=== PATIENT | male | born 1990 | race Caucasian/White ===

== ENCOUNTER 2020-12-02 18:17 | Emergency (ER) | payer OTHER ==
[~2020-12-02] VITALS: Ht 185.4 cm; Wt 90.7 kg
--- NOTE | 2020-12-02 18:22 | NUR ---
BIBA TAKEN TO GREG
[2020-12-02 18:23] VITALS: BP 129/84
--- NOTE | 2020-12-02 18:40 | NUR ---
Code brain called by Dr Sanchez. CT made aware
[2020-12-02] MEDS: MORPHINE SULFATE 2 MG/ML SYR IVP ONE (19:21)
[2020-12-02] MEDS: ONDANSETRON 4 MG/2 ML VIAL IVP ONE ×2 (19:22→20:40)
[2020-12-02 19:25] LABS: HEMATOCRIT 34.1 % (36-52); HEMOGLOBIN 11.7 g/dL (12.0-18.0); LYMPHOCYTES # (AUTO) 0.2 K/uL (2.0-11.5); LYMPHOCYTES % (AUTO) 74.1 % (20.5-51.1); MEAN CORPUSCULAR HEMOGLOBIN 33 pg (27-31); MEAN CORPUSCULAR HGB CONC 34 g/dL (33-37); MEAN CORPUSCULAR VOLUME 95.9 fL (80-94); MONOCYTES % (AUTO) 18.5 % (1.7-9.3); NEUTROPHILS % (AUTO) 7.4 % (42.2-75.2); PLATELET COUNT (AUTO) 57 K/uL (140-450); RED BLOOD CELL COUNT(AUTO) 3.55 MIL/uL (4.20-6.10); RED CELL DISTRIBUTION WIDTH 14.2 % (11.6-13.7)
[2020-12-02 19:39] LABS: ACETAMINOPHEN < 0.5 ug/ml (10-30); ALBUMIN 3.7 g/dL (3.4-5.0); ANION GAP 9.3 (8-16); ASPARTATE AMINOTRANSFERASE 10 U/L (15-37); CARBON DIOXIDE 30.7 mmol/L (21-32); CHLORIDE 90 mmol/L (98-107); CREATININE 1.1 mg/dL (0.6-1.3); GFR ARICAN-AMERICAN 100 mL/min (>90); GLUCOSE 145 mg/dL (74-106); SALICYLATE < 2.8 mg/dL (2.8-20.0); SODIUM SERUM 126 mmol/L (136-145); TOTAL BILIRUBIN 0.4 mg/dL (0.0-1.0); UREA NITROGEN, BLOOD 28 mg/dL (7-18)
[2020-12-02 19:44] LABS: PROTHROMBIN TIME 9.7 secs (10.8-13.4)
[2020-12-02 19:57] LABS: WHITE BLOOD COUNT (AUTO) 0.3 K/uL (4.8-10.8)
[2020-12-02] MEDS ORDERED: ONDANSETRON 4 MG/2 ML VIAL ONE (19:59)
[2020-12-02] MEDS ORDERED: MORPHINE SULFATE 10 MG/ML VIAL ONE (20:38)
[2020-12-02] MEDS ORDERED: DEXAMETHASONE 10 MG/ML VIAL ONE (20:39)
[2020-12-02] MEDS ORDERED: PHENYTOIN 1,000 MG in NACL 0.9% 100 ML IV ONE (20:40)
--- NOTE | 2020-12-02 20:45 | NUR ---
[facility] ARRIVED FOR TRANSPORTATION TO [facility].
[2020-12-02] MEDS: MORPHINE SULFATE 10 MG/ML VIAL IVP ONE (20:46)
[2020-12-02] MEDS: DEXAMETHASONE 10 MG/ML VIAL IVP ONE (20:46)
[2020-12-02 20:49] VITALS: BP 121/80
--- NOTE | 2020-12-02 21:00 | NUR ---
Patient to be transferred to [facility]. Is being transferred due to metastasis of the brain. Receiving facility has accepting physician and available space. ER physician has signed transfer form. Patient or responsible democrat has agreed to transfer and signed form. Patient belongings inventoried and will be sent with patient. Copy of nursing notes, lab reports, EKG, Physicians Orders and X-rays to be sent with patient. Report called to Miriam at receiving facility. [facility] ambulance service has been called for transfer. ETA is 30 minutes.
== END 2020-12-02 21:44 | disposition designated cancer center or children's hospital (05) ==
LOC: MED 18:17
DX: C79.31 Secondary malignant neoplasm of brain (principal); I10 Essential (primary) hypertension; Z86.73 Personal history of transient ischemic attack (TIA), and cerebral infarction without residual deficits; Z85.118 Personal history of other malignant neoplasm of bronchus and lung; Z85.47 Personal history of malignant neoplasm of testis; Z88.0 Allergy status to penicillin
CPT/HCPCS: 36415; 70450; 80053; 85025; 85610; 85730; 93005; 96374; 96375; 96376; 99285; G0480; G0482; J1100; J2270; J2405

== ENCOUNTER 2021-02-15 17:30 | Emergency (ER) | payer OTHER ==
[~2021-02-15] VITALS: Ht 185.4 cm; Wt 93.0 kg
--- NOTE | 2021-02-15 17:30 | NUR ---
PT BIBA AND TAKENT O BED 10.
--- NOTE | 2021-02-15 17:31 | NUR ---
PT PLACED ON 3 LEAD ECG AND PULSE OX. PT PLACED ON 2 L O2 VIA NC.
[2021-02-15] MEDS ORDERED: NACL 0.9% 2,000 ML IV ONE (17:35)
--- NOTE | 2021-02-15 17:35 | NUR ---
DR. JOHANSEN AT BEDSIDE EVALUATING PT.
[2021-02-15 17:42] VITALS: BP 85/57
--- NOTE | 2021-02-15 17:44 | NUR ---
XR AT BEDSIDE.
--- NOTE | 2021-02-15 17:50 | NUR ---
Dr. Caldwell at bedside performing ultrasound and IV insertion.
--- NOTE | 2021-02-15 18:10 | NUR ---
Covid swab (Nidhi) collected
[2021-02-15 18:11] LABS: MEAN CORPUSCULAR HEMOGLOBIN 32 pg (27-31); MEAN CORPUSCULAR HGB CONC 34 g/dL (33-37); MEAN CORPUSCULAR VOLUME 94.3 fL (80-94); PLATELET COUNT (AUTO) 45 K/uL (140-450); RED BLOOD CELL COUNT(AUTO) 2.05 MIL/uL (4.20-6.10); RED CELL DISTRIBUTION WIDTH 17.7 % (11.6-13.7); WHITE BLOOD COUNT (AUTO) 22.6 K/uL (4.8-10.8)
[2021-02-15 18:32] LABS: PROTHROMBIN TIME 9.8 secs (10.8-13.4)
[2021-02-15 18:34] LABS: ALBUMIN 2.8 g/dL (3.4-5.0); ANION GAP 16.7 (8-16); ASPARTATE AMINOTRANSFERASE 9 U/L (15-37); CARBON DIOXIDE 24.2 mmol/L (21-32); CHLORIDE 103 mmol/L (98-107); CREATININE 1.1 mg/dL (0.6-1.3); GFR ARICAN-AMERICAN 100 mL/min (>90); GLUCOSE 192 mg/dL (74-106); POTASSIUM 3.9 mmol/L (3.5-5.1); SODIUM SERUM 140 mmol/L (136-145); TOTAL BILIRUBIN 0.2 mg/dL (0.0-1.0); UREA NITROGEN, BLOOD 23 mg/dL (7-18)
[2021-02-15 18:47] LABS: HEMOGLOBIN 6.6 g/dL (12.0-18.0)
[2021-02-15 18:48] LABS: HEMATOCRIT 19.3 % (36-52)
[2021-02-15 18:50] LABS: ACETAMINOPHEN < 0.5 ug/ml (10-30); SALICYLATE < 2.8 mg/dL (2.8-20.0)
--- NOTE | 2021-02-15 18:50 | NUR ---
RECEIVED CRITICAL LAB HGB- 6.6, HCT- 19.[address] JOHANSEN MADE AWARE.
--- NOTE | 2021-02-15 18:51 | NUR ---
CALLED LAB, SPOKE TO STACY AND NOTIFIED OF DALJIT SWAB IN [facility] UT[facility] ROOM.
[2021-02-15 19:04] LABS: BLASTS, MANUAL % 1 % (0-0); LYMPHOCYTES % (MANUAL) 18 % (20-46); METAMYELOCYTES % 1 % (0-0); MONOCYTES % (MANUAL) 3 % (5-12); MYELOCYTES % 1 % (0-0); PROMYELOCYTES % 1 % (0-0)
[2021-02-15] MEDS ORDERED: VANCOMYCIN 1,000 MG in DEXTROSE 5% 250 ML IV ONE (19:10)
[2021-02-15] MEDS ORDERED: CEFEPIME 1,000 MG in DEXTROSE 5% 50 ML IV ONE (19:10)
[2021-02-15] MEDS ORDERED: NACL 0.9% 1,000 ML IV ONE (19:10)
--- NOTE | 2021-02-15 19:14 | NUR ---
Report given to ALEX Yu.
[2021-02-15 19:15] LABS: APPEARANCE,URINE CLEAR (CLEAR); BILIRUBIN,URINE NEGATIVE (NEGATIVE); BLOOD, URINE NEGATIVE (NEGATIVE); COLOR,URINE YELLOW (YELLOW); LEUKOCYTE ESTERASE ,URINE NEGATIVE (NEGATIVE); NITRITE, URINE NEGATIVE (NEGATIVE); UGLUCOSE NEGATIVE (NEGATIVE)
--- NOTE | 2021-02-15 19:15 | NUR ---
Patient appears to be resting comfortably in bed. Vital Signs within normal limits. Respirations even and unlabored. Patient alert and oriented x4. Patient denies pain at this time. Patient given urinal at bedside. Bed is locked and in lowest position.
[2021-02-15] MEDS ORDERED: CEFEPIME 1,000 MG VIAL ONE (19:28)
[2021-02-15] MEDS ORDERED: VANCOMYCIN 1,000 MG VIAL ONE (19:28)
[2021-02-15 19:32] LABS: BARBITURATE, URINE NEGATIVE ng/ml (NEG <=200); BENZODIAZEPINE, URINE NEGATIVE ng/mL (NEG <=200); CANNABINOID, URINE NEGATIVE ng/mL (NEG <=50); COCAINE, URINE NEGATIVE ng/mL (NEG <=300); OPIATE, URINE NEGATIVE ng/mL (NEG <=2000); PHENCYCLIDINE SCREEN,URINE NEGATIVE ng/mL (NEG <=25)
--- NOTE | 2021-02-15 20:00 | NUR ---
PT RETURN FROM CT
[2021-02-15] MEDS ORDERED: levETIRAcetam 1,000 MG in NACL 0.9% 100 ML IV ONE (20:20)
[2021-02-15] MEDS ORDERED: HYDROcodone/APAP 5/325 MG 1 TAB TAB PO ONE (20:20)
[2021-02-15] MEDS ORDERED: levETIRAcetam 100 MG/ML VIAL IV ONE (21:04)
--- NOTE | 2021-02-15 21:50 | NUR ---
DEBBIE SIGNED CONSENT FOR TRANSFER TO [facility]. PATIENT PRESENTS A &O X4. RESPIRATIONS ARE EVEN AND UNLBAORED. SKIN IS WARM AND DRY TO TOUCH. PATIENT REMAINS ON CARDAIC MONITOR. VSS.
--- NOTE | 2021-02-15 21:50 | NUR ---
Consent signed per PATIENT agreeing to administration of blood. Blood has been type and crossmatched. Blood sent from blood bank. Information on unit of blood checked against patient wristband at bedside by two nurses. All information matches. Patient or responsible republican informed of potential complications associated with blood transfusion. Informed of possible transfusion reaction symptoms. Aware of need to notify nurse at once of itching, shortness of breath, flushing, feeling of impending doom, or other symptoms not previously present. Vital signs taken within 5 minutes prior to initiation of transfusion. RN will remain with patient for first 15 minutes of transfusion at which time vital signs will be re-assessed.
--- NOTE | 2021-02-15 22:31 | NUR ---
[facility] TRANSPORT AT BEDSIDE
[2021-02-15 22:35] VITALS: BP 106/59
--- NOTE | 2021-02-15 22:35 | NUR ---
Patient to be transferred to [facility]. Is being transferred due to METASTATIS BLEED FROM BRAIN, SEPSIS, PNEUMONIA. Receiving facility has accepting physician and available space. ER physician has signed transfer form. Patient or responsible green party has agreed to transfer and signed form. Patient belongings inventoried and will be sent with patient. Copy of nursing notes, lab reports, EKG, Physicians Orders and X-rays to be sent with patient. Report called to NOMAN JOHNSON at receiving facility. [facility] ambulance service has been called for transfer.
--- NOTE | 2021-02-15 22:50 | NUR ---
PT TAKEN BY [facility] TRANSPORT TO [facility] ER
--- NOTE | 2021-02-21 09:28 | NUR ---
LATE ENTRY -- NORMAL SALINE INFUSION COMPLETED AT 1843 02/15/21
== END 2021-02-15 22:50 | disposition designated cancer center or children's hospital (05) ==
LOC: MED 17:30
DX: A41.9 Sepsis, unspecified organism (principal); Z20.822 Contact with and (suspected) exposure to COVID-19; J18.9 Pneumonia, unspecified organism; R55 Syncope and collapse; D64.9 Anemia, unspecified; R10.9 Unspecified abdominal pain; R42 Dizziness and giddiness; J45.909 Unspecified asthma, uncomplicated; Z88.0 Allergy status to penicillin; Z86.73 Personal history of transient ischemic attack (TIA), and cerebral infarction without residual deficits; Z85.841 Personal history of malignant neoplasm of brain; Z85.118 Personal history of other malignant neoplasm of bronchus and lung; Z85.47 Personal history of malignant neoplasm of testis
CPT/HCPCS: 36415; 70450; 71045; 71275; 74174; 80053; 80305; 81003; 83605; 84484; 85025; 85610; 85730; 86886; 86900; 86901; 86920; 87040; 87426; 93005; 96361; 96365; 96366; 96367; 96368; 99291; G0480; G0482; J0692; J1953; J3370; J7030; P9016; Q9967

== ENCOUNTER 2021-06-10 19:50 | Emergency (ER) | payer OTHER ==
[~2021-06-10] VITALS: Ht 177.8 cm; Wt 93.0 kg
[2021-06-10 19:50] VITALS: BP 126/78
[2021-06-10] MEDS ORDERED: levETIRAcetam 1,000 MG in NACL 0.9% 100 ML IV ONE (19:55)
--- NOTE | 2021-06-10 20:00 | NUR ---
bj from home s/p tonic clonic seizure x2, now post-ictal. Had 1 seizure at home that lasted for 1 min and another in the ambulance for 30seconds, Given 2.5mg versed. AAOx2-- person, place. Patient tachycardic @120s. Seizure pads in place and placed on the monitor. medhx- metastatic testticular CA allx- pcn
--- NOTE | 2021-06-10 20:01 | NUR ---
EKG PERFORMED AT BEDSIDE. EKG READS SINUS TACHYCARDIA @ 102
--- NOTE | 2021-06-10 20:10 | NUR ---
patient to radiology via [facility]
[2021-06-10 20:19] LABS: APPEARANCE,URINE CLEAR (CLEAR); BILIRUBIN,URINE NEGATIVE (NEGATIVE); BLOOD, URINE TRACE-I (NEGATIVE); COLOR,URINE YELLOW (YELLOW); LEUKOCYTE ESTERASE ,URINE NEGATIVE (NEGATIVE); NITRITE, URINE NEGATIVE (NEGATIVE); PH,URINE 5.5 (5.0-9.0); UGLUCOSE NEGATIVE (NEGATIVE)
[2021-06-10 20:20] LABS: HEMATOCRIT 24.5 % (36-52); HEMOGLOBIN 8.2 g/dL (12.0-18.0); MEAN CORPUSCULAR HEMOGLOBIN 33 pg (27-31); MEAN CORPUSCULAR HGB CONC 34 g/dL (33-37); MEAN CORPUSCULAR VOLUME 96.9 fL (80-94); PLATELET COUNT (AUTO) 155 K/uL (140-450); RED BLOOD CELL COUNT(AUTO) 2.53 MIL/uL (4.20-6.10); RED CELL DISTRIBUTION WIDTH 21.9 % (11.6-13.7); WHITE BLOOD COUNT (AUTO) 8.9 K/uL (4.8-10.8)
[2021-06-10] MEDS ORDERED: levETIRAcetam 100 MG/ML VIAL IV ONE (20:29)
[2021-06-10 20:32] LABS: ANION GAP 20.9 (8-16); CARBON DIOXIDE 20.9 mmol/L (21-32); CREATININE 1.4 mg/dL (0.6-1.3); POTASSIUM 3.8 mmol/L (3.5-5.1); TOTAL BILIRUBIN 0.2 mg/dL (0.0-1.0)
--- NOTE | 2021-06-10 20:55 | NUR ---
CALLED REGARDING UPDATES ON PATIENT #[phone]
[2021-06-10] MEDS ORDERED: NACL 0.9% 1,000 ML IV ONE (21:05)
[2021-06-10 21:07] LABS: LYMPHOCYTES % (MANUAL) 11 % (20-46)
[2021-06-10 21:08] LABS: EOSINOPHILS % (MANUAL) 1 % (0-4); MONOCYTES % (MANUAL) 14 % (5-12); MYELOCYTES % 1 % (0-0)
--- NOTE | 2021-06-10 21:19 | NUR ---
patient complaining of pain in the RLQ of the abdomen due to cancer. LISE Said notified.
[2021-06-10] MEDS ORDERED: DEXAMETHASONE 10 MG/ML VIAL IVP ONE (21:20)
--- NOTE | 2021-06-10 21:25 | NUR ---
ERMD AT BEDSIDE RE-EXAMINING PATIENT
[2021-06-10] MEDS ORDERED: DIAZ1KIT RC ×2 (21:30)
[2021-06-10] MEDS ORDERED: MORPHINE SULFATE 4 MG/ML SYR IVP ONE (21:30)
[2021-06-10] MEDS ORDERED: ONDANSETRON 4 MG/2 ML VIAL IVP ONE (21:30)
--- NOTE | 2021-06-10 21:33 | NUR ---
Called about discharging patient due to needing a ride to go back home and updating .
--- NOTE | 2021-06-10 22:08 | NUR ---
IV removed, catheter intact and site benign. Applied folded 4x4 gauze and tape to stop bleeding.
[2021-06-10 22:11] VITALS: BP 123/78
--- NOTE | 2021-06-10 22:11 | NUR ---
Patient discharged with v/s stable. Written and verbal after care instructions given and explained. Patient alert, oriented and verbalized understanding of instructions. Ambulatory with steady gait. All questions addressed prior to discharge. ID band removed. Patient advised to follow up with PMD. Rx of Diazepam given. Patient educated on indication of medication including possible reaction and side effects. Opportunity to ask questions provided and answered.
== END 2021-06-10 22:11 | disposition home or self-care (01) ==
LOC: MED 19:50
DX: R56.9 Unspecified convulsions (principal); D64.9 Anemia, unspecified; E87.2 Acidosis; C62.90 Malignant neoplasm of unspecified testis, unspecified whether descended or undescended; J45.909 Unspecified asthma, uncomplicated; Z86.73 Personal history of transient ischemic attack (TIA), and cerebral infarction without residual deficits; Z88.0 Allergy status to penicillin
CPT/HCPCS: 36415; 70450; 71045; 80053; 81003; 83605; 83880; 84484; 85025; 87040; 87086; 93005; 96361; 96365; 96375; 99285; J1100; J1953; J2270; J2405; J7030

== ENCOUNTER 2021-06-25 10:09 | Emergency (ER) | payer OTHER ==
[~2021-06-25] VITALS: Ht 185.4 cm; Wt 96.2 kg
[~2021-06-25 10:09] MED LIST: DIAZ1KIT RC
[2021-06-25 10:10] VITALS: BP 124/82
--- NOTE | 2021-06-25 10:10 | NUR ---
BIBA TO BED 10
--- NOTE | 2021-06-25 10:12 | NUR ---
31 Y/O MALE BIBA FROM HOME C/O FOCAL SEIZURE- EYES ROLLED BACK AND EYELIDS FLUTTER. PT A/O X4, AWARE OF SEIZURE. PT WAS LAYING DOWN WHEN IT OCCURED, DENIES HITTING HEAD. NO ORAL TRAUMA. PT STATED THAT SEIZURES BEGAN SHORTLY AFTER STARTING CHEMO. PT STATED HE HAD 2 TODAY WITH LAST ONE X3 WEEKS AGO. PT C/O RLQ ABD PAIN THAT HE STATES HE ALWAYS HAS ALONG WITH BURNING URINATION WHICH IS HIS "NORMAL". CHEMO PORT RIGHT UPPER CHEST. PT A/O X4 WITH EVEN AND UNLABORED RESPIRATIONS. PT IN GOWN, ON PEDIATRIC PHYSICAL THERAPY ASSISTANT WITH SEIZURE PRECAUTIONS IN PLACE. PMH:TESTICULAR CX WITH METS TO BRAIN, LUNGS, LIVER ALLERGIES:PCN Addendum: 06/25/21 at 1332 by [facility] PT STATED THAT HE TOOK HIS KEPPRA MEDICATION THIS MORNING PRESCRIBED. PT ALSO STATED THAT HE HAS AN AURA BEFORE SEIZING. CALL LIGHT GIVEN TO PT TO NOTIFY US.
--- NOTE | 2021-06-25 10:13 | NUR ---
DR SZYMANSKI AT BEDSIDE EVALUATING PT
--- NOTE | 2021-06-25 10:35 | NUR ---
20 G IV ESTABLISHED TO RIGHT UPPER ARM. BLOOD SAMPLES COLLECTED VIA IV AND HANDED TO ARMATURE WINDER
[2021-06-25 10:39] LABS: BASOPHILS # (AUTO) 0.1 K/uL (0.00-0.22); EOSINOPHILS # (AUTO) 0.1 K/uL (0-0.4); EOSINOPHILS % (AUTO) 1.7 % (0.0-4.0); HEMATOCRIT 23.7 % (36-52); LYMPHOCYTES # (AUTO) 0.6 K/uL (2.0-11.5); MEAN CORPUSCULAR HEMOGLOBIN 33 pg (27-31); MEAN CORPUSCULAR HGB CONC 34 g/dL (33-37); MONOCYTES # (AUTO) 0.6 K/uL (0.8-1.0); MONOCYTES % (AUTO) 8.6 % (1.7-9.3); NEUTROPHILS # (AUTO) 5.6 K/uL (1.8-7.7); PLATELET COUNT (AUTO) 91 K/uL (140-450); RED BLOOD CELL COUNT(AUTO) 2.39 MIL/uL (4.20-6.10); RED CELL DISTRIBUTION WIDTH 21.7 % (11.6-13.7)
[2021-06-25 10:54] LABS: ALBUMIN 3.7 g/dL (3.4-5.0); ANION GAP 12.5 (8-16); CARBON DIOXIDE 30.4 mmol/L (21-32); POTASSIUM 3.9 mmol/L (3.5-5.1); TOTAL BILIRUBIN 0.3 mg/dL (0.0-1.0)
[2021-06-25 10:57] LABS: LYMPHOCYTES % (AUTO) 8.4 % (20.5-51.1); NEUTROPHILS % (AUTO) 80.3 % (42.2-75.2)
--- NOTE | 2021-06-25 12:01 | NUR ---
PT RESTING IN BED WITH EVEN AND UNLABORED RESPIRATIONS. PT ON ELECTROMECHANICAL EQUIPMENT TESTER. VSS. SEIZURE PRECAUTIONS IN PLACE. WILL CONTINUE TO MONITOR
[2021-06-25] MEDS ORDERED: HYDROcodone/APAP 5/325 MG 1 TAB TAB PO ONE (12:40)
--- NOTE | 2021-06-25 13:05 | NUR ---
PT C/O NAUSEA AND STATED HE HASNT EATING ANYTHING TODAY. PT GIVEN SNACKS.
[2021-06-25 13:20] VITALS: BP 127/87
--- NOTE | 2021-06-25 13:28 | NUR ---
Patient discharged with v/s stable. Written and verbal after care instructions ABOUT SEIZURES given and explained. Patient verbalized understanding. Wheel Chair Assisted with to car. All questions addressed prior to discharge. Advised to follow up with PMD.
[2021-06-26] MEDS ORDERED: levETIRAcetam 500 MG TAB ONE (10:07)
== END 2021-06-25 13:28 | disposition home or self-care (01) ==
LOC: MED 10:09
DX: R56.9 Unspecified convulsions (principal); G93.9 Disorder of brain, unspecified; Z85.47 Personal history of malignant neoplasm of testis
CPT/HCPCS: 36415; 80053; 85025; 99283

== ENCOUNTER 2021-06-25 15:26 | Emergency (ER) | payer OTHER ==
[~2021-06-25] VITALS: Ht 185.4 cm; Wt 96.2 kg
[2021-06-25] MEDS ORDERED: levETIRAcetam 500 MG TAB PO ONE ×2 (15:35→21:55)
[2021-06-25] MEDS ORDERED: LORazepam 1 MG TAB PO ONE (15:35)
--- NOTE | 2021-06-25 15:35 | NUR ---
PT W/C ASSISTED TO BED 6.
--- NOTE | 2021-06-25 15:40 | NUR ---
31 y/o M BIB with c/c generalized weakness and near syncope s/p discharged today from [facility]. Patient states he was laying in bed and stood up stating to his that he does not feel good. Patient has history of seizure and brain cancer; reports last seizure 06/12/21 prior to 2 seizures from prior visit today. Patient currently states he does not feel well, and reports aura of hand tremors. Patient presents with slight hand tremors at this time and medication with PO seizure medications. Pt placed onto monitoring specialist and gown. Seizure precautions in place. VSS; respirations even/unlabored. Bed locked in lowest position, side rails x [address], call light in reach. at bedside at this time. PMH: brain cancer, seizures, anxiety Meds: Keppra, vinpak, decadron, protonix, folic acid, colace A: PCN
[2021-06-25 15:43] VITALS: BP 126/87
--- NOTE | 2021-06-25 15:50 | NUR ---
Patient transported to CT via gurney by explosive ordnance disposal technician.
--- NOTE | 2021-06-25 16:02 | NUR ---
Patient returned from CT via gurney and placed back onto monitoring coordinator.
[2021-06-25] MEDS ORDERED: DEXAMETHASONE 10 MG/ML VIAL IVP SCH (16:35)
--- NOTE | 2021-06-25 17:18 | NUR ---
Keith peters swab collected, walked to lab and handed to CPT. Carina
--- NOTE | 2021-06-25 19:22 | NUR ---
RECIVED REPORT FROM ALEX TUTTLE. CONTINUATION OF CARE. PATIENT ALERT AND ORIENTED X4. SEIZURE PRECAUTIONS IN PLACE. PATIENT ABLE TO VERBALIZE NEEDS. AT BEDSIDE. PATIENT REMAINS ON ROUTE DRIVER AND VSS. BED IS LOCKED AND IN LOWEST POSITION.
--- NOTE | 2021-06-25 19:22 | NUR ---
Report and transfer of care endorsed to ALEX Yu.
[2021-06-25] MEDS ORDERED: MORPHINE SULFATE 4 MG/ML SYR IVP ONE (19:25)
--- NOTE | 2021-06-25 19:30 | NUR ---
PATIENT STATES C/O 06/03 GENERALIZED B HOSEA ACHES. ERMD MADE AWARE AND GAVE NEW ORDER FOR MORPHINE IVP.
--- NOTE | 2021-06-25 21:16 | NUR ---
PER WILL BE GOING HOME AND GAVE TELEPHONE # [phone].
--- NOTE | 2021-06-25 21:30 | NUR ---
PATIENT PAIN REASSESSED AND NOW 01/04. PATIENT REMAINS ON SAWMILL SUPERVISOR. VSS. PATIENT REMAINS A&O X 4. PATIENT REMAINS ON SIEZURE PRECAUTIONS. PATIENT BED IS LOCKED AND IN LOWEST POSITION.
--- NOTE | 2021-06-25 22:39 | NUR ---
Patient appears to be resting comfortably in bed. Vital Signs within normal limits. Respirations even and unlabored.
--- NOTE | 2021-06-26 00:30 | NUR ---
PT MOVED TO BED #1
[2021-06-26] MEDS ORDERED: MORPHINE SULFATE 4 MG/ML SYR IVP ONE ×3 (01:00→09:15)
--- NOTE | 2021-06-26 01:10 | NUR ---
C/O PAIN, MEDICATED ORDERED
--- NOTE | 2021-06-26 07:10 | NUR ---
Report and continuation of care received from ALEX Carter.
--- NOTE | 2021-06-26 07:30 | NUR ---
Patient resting with both eyes closed in semi-fowlers position. gear cutter in place; VSS respirations even/unlabored. Bed locked in lowest position, side rails x 2, call light in reach.
[2021-06-26] MEDS ORDERED: DEXAMETHASONE 4 MG/ML VIAL IVP ONE (09:00)
[2021-06-26] MEDS ORDERED: levETIRAcetam 500 MG TAB PO ONE ×2 (09:15→10:10)
--- NOTE | 2021-06-26 09:15 | NUR ---
Patient states increasing pain; requesting medication at this time. Dr. Sauer made aware.
--- NOTE | 2021-06-26 09:45 | NUR ---
Pt states positive relief after Morphine 4mg IVP; 5/10.
--- NOTE | 2021-06-26 10:05 | NUR ---
Patient states Keppra 1500mg PO BID; Dr. Sauer made aware for additional order to match prescribed dose.
--- NOTE | 2021-06-26 10:20 | NUR ---
Report given to ALEX Maloney at [facility]; all questions answered. Advised of NAWAF SUÁREZ 1130 and to call for any changes.
--- NOTE | 2021-06-26 10:20 | NUR ---
Patient to be transferred to [facility]. Is being transferred due to higher level of care. Receiving facility has accepting physician and available space. ER physician has signed transfer form. Patient or responsible republican has agreed to transfer and signed form. Patient belongings inventoried and will be sent with patient. Copy of nursing notes, lab reports, EKG, Physicians Orders and X-rays to be sent with patient. Report called to ALEX Maloney at receiving facility. [facility] ambulance service has been called for transfer. ETA is 1130.
[2021-06-26] MEDS ORDERED: ONDANSETRON 4 MG/2 ML VIAL ONE (10:43)
[2021-06-26] MEDS ORDERED: ONDANSETRON 4 MG/2 ML VIAL IVP ONE (10:45)
--- NOTE | 2021-06-26 11:30 | NUR ---
Patient resting in semi-fowlers position with (Rach) at bedside. laboratory monitor in place. VSS; respirations even/unlabored. SpO2 95% on room air. Bed locked in lowest position, side rails x 2, call light in reach.
[2021-06-26] MEDS ORDERED: HYDROmorphone PFS 2 MG/ML SYR IVP ONE (14:25)
--- NOTE | 2021-06-26 14:30 | NUR ---
[facility] at bedside.
[2021-06-26 14:44] VITALS: BP 111/72
--- NOTE | 2021-06-26 14:44 | NUR ---
Patient reports relief to pain after Dilaudid 0.5mg IVP; pain 4/10. Patient assisted onto [facility] without incident.
--- NOTE | 2021-06-26 14:48 | NUR ---
[facility] AT BEDSIDE FOR TRANSPORT
== END 2021-06-26 14:48 | disposition short-term general hospital (02) ==
LOC: MED 15:26
DX: G93.6 Cerebral edema (principal); C79.9 Secondary malignant neoplasm of unspecified site; F41.9 Anxiety disorder, unspecified; Z20.822 Contact with and (suspected) exposure to COVID-19
CPT/HCPCS: 70450; 87426; 96374; 96375; 96376; 99291; J1100; J1170; J2270; J2405; U0003

== ENCOUNTER 2021-07-07 00:40 | Emergency (ER) | payer OTHER ==
[~2021-07-07] VITALS: Ht 185.4 cm; Wt 96.2 kg
[2021-07-07 00:42] VITALS: BP 135/88
--- NOTE | 2021-07-07 00:55 | NUR ---
PT HAVEN BLS. TAKEN TO BED 8
--- NOTE | 2021-07-07 01:09 | NUR ---
Dr. Burnett examining patient.
--- NOTE | 2021-07-07 01:10 | NUR ---
PT. IS A 31 Y/O MALE THAT CAME IN TO ED WITH C/O OF LEFT ARM PAIN. PT. STATES THAT THE PAIN STARTED AT 4PM. DENIES TRAUMA/FALL TO THE LEFT ARM. PT. RATES PAIN AT 10/10 ON THE PAIN SCALE AT THIS TIME. DENIES N/V/D; SKIN IS PINK/WARM/DRY; AAOX4 WITH EVEN AND STEADY GAIT; HR EVEN AND REGULAR; PT DENIES ANY FEVER, CP, SOB, OR COUGH AT THIS TIME; VSS; PATIENT POSITIONED FOR COMFORT; HOB ELEVATED; BEDRAILS UP X2; BED DOWN. ER MD MADE AWARE OF PT STATUS.
[2021-07-07] MEDS ORDERED: HYDROcodone/APAP 10/325 MG 1 TAB TAB PO STA (01:11)
[2021-07-07] MEDS ORDERED: LORazepam 1 MG TAB PO ONE (03:25)
[2021-07-07] MEDS ORDERED: levETIRAcetam 500 MG TAB PO ONE (03:25)
[2021-07-07 04:28] VITALS: BP 128/71
--- NOTE | 2021-07-07 04:28 | NUR ---
Patient discharged with v/s stable. Written and verbal after care instructions given and explained. Patient verbalized understanding. Wheel Chair Assisted to car. ID band removed. All questions addressed prior to discharge. Advised to follow up with PMD.
== END 2021-07-07 04:28 | disposition home or self-care (01) ==
LOC: MED 00:40
DX: M25.522 Pain in left elbow (principal); R56.9 Unspecified convulsions; Z88.0 Allergy status to penicillin; Z79.899 Other long term (current) drug therapy; Z86.73 Personal history of transient ischemic attack (TIA), and cerebral infarction without residual deficits; Z85.47 Personal history of malignant neoplasm of testis; Z85.05 Personal history of malignant neoplasm of liver; Z85.118 Personal history of other malignant neoplasm of bronchus and lung; Z85.841 Personal history of malignant neoplasm of brain
CPT/HCPCS: 73080; 99284

== ENCOUNTER 2021-07-10 20:41 | Emergency (ER) | payer OTHER ==
[~2021-07-10] VITALS: Ht 185.4 cm; Wt 96.2 kg
[2021-07-10 20:45] VITALS: BP 120/75
--- NOTE | 2021-07-10 20:45 | NUR ---
BIBA TAKEN TO BED #12
--- NOTE | 2021-07-10 20:55 | NUR ---
PT BIBA FOR C/C HEADACHE X 8 HOURS AGO. +PRODUCTIVE COUGH WITH DARK RED BLOOD. PT REPORTS TAKING PERCOCET WITHOUT RELIEF. PER [facility], PT 02 SAT 77% ON ROOM AIR, THEN PLACE ON 2 L NASAL CANNULA O2 95%. UPON ARRIVAL PT O2 SAT 82% ON ROOM AIR, PT DENIES SOB, NO LABORED BREATHING NOTED, RESPIRATIONS EVEN. PT DENIES CP. PT CONNECTED TO WHOLESALE AGRONOMIST. NASAL CANNULA 2 L PLACED. BED LOCKED AND IN LOWEST POSITION. MED HX: LUNG CANCER WITH METS BRAIN AND LUNGS Addendum: 07/10/21 at 2218 by [email or web address] HX OF CVA WITH LEFT SIDED WEAKNESS.
[2021-07-10] MEDS ORDERED: KETOROLAC 30 MG/ML VIAL IVP ONE (22:20)
--- NOTE | 2021-07-10 22:22 | NUR ---
XRAY AT BEDSIDE.
--- NOTE | 2021-07-10 22:22 | NUR ---
ASSISTED PT WITH BEDSIDE URINAL, 100 CC CLEAR, YELLOW URINE NOTED.
--- NOTE | 2021-07-10 22:30 | NUR ---
Dr. Higgins examining patient.
--- NOTE | 2021-07-10 22:30 | NUR ---
LAB AT BEDSIDE DRAWING BLOOD CULTURES.
[2021-07-10 22:47] LABS: BASOPHILS % (AUTO) 0.5 % (0.0-2.0); EOSINOPHILS # (AUTO) 0.1 K/uL (0-0.4); EOSINOPHILS % (AUTO) 1.3 % (0.0-4.0); HEMATOCRIT 22.9 % (36-52); HEMOGLOBIN 7.6 g/dL (12.0-18.0); LYMPHOCYTES # (AUTO) 0.4 K/uL (2.0-11.5); LYMPHOCYTES % (AUTO) 4.8 % (20.5-51.1); MEAN CORPUSCULAR HEMOGLOBIN 33 pg (27-31); MEAN CORPUSCULAR HGB CONC 33 g/dL (33-37); MEAN CORPUSCULAR VOLUME 99.5 fL (80-94); MONOCYTES # (AUTO) 0.5 K/uL (0.8-1.0); NEUTROPHILS % (AUTO) 87.4 % (42.2-75.2); PLATELET COUNT (AUTO) 59 K/uL (140-450); RED BLOOD CELL COUNT(AUTO) 2.31 MIL/uL (4.20-6.10); RED CELL DISTRIBUTION WIDTH 19.6 % (11.6-13.7)
[2021-07-10 23:02] LABS: ALBUMIN 3.2 g/dL (3.4-5.0); ANION GAP 13.8 (8-16); CARBON DIOXIDE 27.1 mmol/L (21-32); CREATININE 1.1 mg/dL (0.6-1.3); POTASSIUM 3.9 mmol/L (3.5-5.1); TOTAL BILIRUBIN 0.5 mg/dL (0.0-1.0)
--- NOTE | 2021-07-10 23:02 | NUR ---
PT RETURN FROM CT
--- NOTE | 2021-07-10 23:32 | NUR ---
Patient appears to be resting comfortably in bed. Vital Signs within normal limits. Respirations even and unlabored. PT TALKING WITH FAMILY ON PHONE. CALL LIGHT WITHIN REACH.
[2021-07-10 23:45] LABS: APPEARANCE,URINE CLEAR (CLEAR); BILIRUBIN,URINE NEGATIVE (NEGATIVE); BLOOD, URINE 3+ (NEGATIVE); COLOR,URINE YELLOW (YELLOW); LEUKOCYTE ESTERASE ,URINE NEGATIVE (NEGATIVE); NITRITE, URINE NEGATIVE (NEGATIVE); PH,URINE 5.5 (5.0-9.0); UGLUCOSE NEGATIVE (NEGATIVE)
[2021-07-10] MEDS ORDERED: OSMITROL 25% 12.5 GM/50 ML VIAL IV ONE (23:50)
[2021-07-10 23:52] LABS: RBC,URINE 20-50 /HPF (0-5); WBC,URINE 0-5 /HPF (0-5)
--- NOTE | 2021-07-11 00:25 | NUR ---
CONFIRMED WITH AFTER HOURS PHARMACY, MANNITOL TO BE ADMINISTERED OVER 30-60 MIN IV.
[2021-07-11] MEDS ORDERED: DEC4 PO (01:24)
[2021-07-11] MEDS ORDERED: ATI.5 PO (01:24)
[2021-07-11] MEDS ORDERED: KEP500 PO (01:24)
[2021-07-11] MEDS ORDERED: LACO100T PO (01:24)
[2021-07-11] MEDS ORDERED: PANT20EC PO (01:24)
--- NOTE | 2021-07-11 01:29 | NUR ---
ASSISTED PT WITH URINAL. 150 CC CLEAR, YELLOW URINE NOTED.
--- NOTE | 2021-07-11 01:30 | NUR ---
PT NOTIFIED FAMILY OF PENDING HOSPITAL ADMISSION VIA PHONE CALL.
--- NOTE | 2021-07-11 01:39 | NUR ---
VERBAL ORDER FROM LISE BYRD, ZOFRAN 4MG AND MORPHINE 4MG. ORDER PLACED.
[2021-07-11] MEDS ORDERED: ONDANSETRON 4 MG/2 ML VIAL IVP ONE ×3 (01:40→15:20)
[2021-07-11] MEDS ORDERED: MORPHINE SULFATE 4 MG/ML SYR ONE (01:40)
[2021-07-11] MEDS ORDERED: MORPHINE SULFATE 4 MG/ML SYR IVP ONE ×4 (01:40→18:25)
[2021-07-11] MEDS ORDERED: ONDANSETRON 4 MG/2 ML VIAL ONE ×2 (01:41→15:19)
--- NOTE | 2021-07-11 03:05 | NUR ---
Patient appears to be resting comfortably in bed, EYES CLOSED. Respirations even and unlabored. NO NOTED DISTRESS AT THIS TIME.
[2021-07-11] MEDS ORDERED: cefTRIAXone 1,000 MG VIAL ONE (03:15)
--- NOTE | 2021-07-11 04:23 | NUR ---
Patient appears to be resting comfortably in bed. Vital Signs within normal limits. Respirations even and unlabored. NO NOTED DISTRESS AT THIS TIME. CALL LIGHT REMAINS WITHIN REACH.
--- NOTE | 2021-07-11 04:54 | NUR ---
PT C/O PAIN 07/04. ERMD AWARE. VERBAL ORDER FOR MORPHINE 4MG IVP.
--- NOTE | 2021-07-11 05:26 | NUR ---
PT ASSISTED WITH BEDSIDE URINAL. 200 CC CLEAR, YELLOW URINE NOTED. PROVIDED PT ADDITIONAL BLANKET FOR COMFORT. CALL LIGHT REMAINS WITHIN REACH.
--- NOTE | 2021-07-11 07:20 | NUR ---
REPORT GIVEN TO ALEX PICKETT FOR CONTINUITY OF CARE.
--- NOTE | 2021-07-11 07:20 | NUR ---
REPORT AND CONTINUATION OF CARE RECEIVED FROM ALEX ANDERS.
--- NOTE | 2021-07-11 07:34 | NUR ---
PT OBSERVED IN BED AWAKE AND RESTING IN BED AT THIS TIME.
--- NOTE | 2021-07-11 08:15 | NUR ---
PATIENT REPOSITIONED IN BED, AWAKE AND ALERT, VSS.
[2021-07-11] MEDS ORDERED: levETIRAcetam 2,000 MG in NACL 0.9% 100 ML IV ONE (09:20)
[2021-07-11] MEDS ORDERED: LORazepam 2 MG/ML VIAL IVP ONE ×4 (09:20→20:45)
--- NOTE | 2021-07-11 09:30 | NUR ---
PATIENT AWAKE AND ALERT, GIVEN WATER AND ASSISTED WITH URINAL. VSS. RR EVEN AND UNLABORED.
[2021-07-11] MEDS ORDERED: levETIRAcetam 1,000 MG in NACL 0.9% 100 ML IV SCH ×2 (09:45→10:15)
--- NOTE | 2021-07-11 10:40 | NUR ---
PATIENT PROVIDED WITH EXTRA BLANKET, WATER GIVEN. ALERT AND AWAKE, RR EVEN AND UNLABORED.
--- NOTE | 2021-07-11 11:11 | NUR ---
PATIENT C/O NAUSEA, GIVEN ZOFRAN 4MG/2ML IV PUSH PER MD ORDER.
--- NOTE | 2021-07-11 12:22 | NUR ---
PATIENT OBSERVED IN BED RESTING COMFORTABLY AT THIS TIME, RR EVEN AND UNLABORED.
--- NOTE | 2021-07-11 13:46 | NUR ---
PT IN BED AWAKE AND ALERT, RR EVEN AND UNLABORED.
--- NOTE | 2021-07-11 14:25 | NUR ---
PT REPOSITIONED AND ASSISTED WITH URINAL.
[2021-07-11] MEDS ORDERED: DEXAMETHASONE 10 MG/ML VIAL IVP ONE (14:50)
--- NOTE | 2021-07-11 15:00 | NUR ---
SISTER AT BEDSIDE
--- NOTE | 2021-07-11 15:10 | NUR ---
PT C/O NAUSEA AND REQUESTING NAUSEA MEDICATION, DR ARIZMENDI MADE AWARE
--- NOTE | 2021-07-11 15:27 | NUR ---
assisted pt with urinal.
--- NOTE | 2021-07-11 15:31 | NUR ---
PT REQUESTING DECADRON, STATES HE TAKES IT AT HOME 4X A DAY. MADE AWARE.
--- NOTE | 2021-07-11 16:14 | NUR ---
PT ASSISTED WITH URINAL, AND GIVEN CUP OF WATER.
--- NOTE | 2021-07-11 16:28 | NUR ---
PT C/O PAIN 7/10 HEADACHE, "THROBBING" GIVEN MORPHINE 4MG IVP PER MD ORDER.
--- NOTE | 2021-07-11 17:49 | NUR ---
Patient in bed awake and alert, rr even and unlabored. sister at bedside.
[2021-07-11] MEDS ORDERED: NACL 0.9% 1,000 ML IV ONE (18:00)
--- NOTE | 2021-07-11 18:00 | NUR ---
PATIENT HR 123, RR 34 MD ARIZMENDI MADE AWARE.
--- NOTE | 2021-07-11 18:41 | NUR ---
PATIENT C/O HEADACHE 06/03 GIVEN MORPHINE 4MG IVP PER MD ORDER.
--- NOTE | 2021-07-11 19:17 | NUR ---
REPORT AND TRANSFER OF CARE GIVEN TO ALEX CASTAÑEDA.
--- NOTE | 2021-07-11 19:17 | NUR ---
Received report from Neena JOHNSON and Cathleen JOHNSON for continuity of care
--- NOTE | 2021-07-11 20:07 | NUR ---
provided armando care and help with urinal for patient
--- NOTE | 2021-07-11 20:30 | NUR ---
patient feeling high anxiety, restless, "having panic attack"; patient increase RR at around 40 per minute-- ERMD made aware.
--- NOTE | 2021-07-11 20:34 | NUR ---
patient family member spoke about updates on patient and expressed concerns about transfers, and food.
--- NOTE | 2021-07-11 20:46 | NUR ---
provided armando care and help with urinal for patient, patient also has elevated HR and increased RR-- ERMD made aware
--- NOTE | 2021-07-11 21:42 | NUR ---
patient tachypnic at around 45s, and tachycardic 125s, restless-- ERMD made aware
--- NOTE | 2021-07-11 22:22 | NUR ---
provided armando care and help with urinal for patient, patient also has elevated HR and increased RR-- ERMD made aware
--- NOTE | 2021-07-11 23:50 | NUR ---
provided armando care, food -- apple sauce and jello to patient.
[2021-07-12] MEDS ORDERED: diphenhydrAMINE 50 MG/ML VIAL IVP ONE (00:05)
[2021-07-12] MEDS ORDERED: PROCHLORPERAZINE 10 MG/2 ML VIAL IVP ONE (00:05)
[2021-07-12] MEDS ORDERED: METOPROLOL 5 MG/5 ML VIAL IVP ONE (00:15)
--- NOTE | 2021-07-12 00:15 | NUR ---
Jayna pop in ED - 07/12/21 at 0955 by [email or web address] patient reports feeling nauseous, and restless. reporting patient is tachycardic and tachypnic-- LISE made aware, given compazine
--- NOTE | 2021-07-12 00:15 | NUR ---
patient reports feeling nauseous, and restless-- ERMD made aware, given compazine. reporting patient is tachycardic and tachypnic-- ERMD made aware, given lopressor
[2021-07-12] MEDS ORDERED: LORazepam 2 MG/ML VIAL ONE ×2 (00:52→01:45)
--- NOTE | 2021-07-12 00:52 | NUR ---
Respiratory Therapist at bedside for respiratory intervention.
--- NOTE | 2021-07-12 01:23 | NUR ---
Spoke with via phone regarding patient condition and updates.
[2021-07-12] MEDS ORDERED: HALOPERIDOL IM 5 MG/ML VIAL ONE (01:45)
--- NOTE | 2021-07-12 02:00 | NUR ---
patient feeling as though there is on coming seizure, patient tachycardic, tachypnic, and restless-- ERMD made aware, ativan prescribed.
[2021-07-12] MEDS ORDERED: LORazepam 2 MG/ML VIAL IVP ONE (02:10)
[2021-07-12] MEDS ORDERED: HALOPERIDOL IM 5 MG/ML VIAL IM ONE (02:10)
[2021-07-12] MEDS ORDERED: LORazepam 2 MG/ML VIAL IM ONE (02:10)
--- NOTE | 2021-07-12 02:30 | NUR ---
Physician order given to place soft bilateral upper wrist restraints to prevent patient disrupting nursing interventions, pulling on tubes and lines, and restlessness. Resraints placed with quick-release ties to bed frame. Pt under observation.
[2021-07-12] MEDS ORDERED: ZOLPIDEM 10 MG TAB PO ONE (04:00)
--- NOTE | 2021-07-12 04:10 | NUR ---
patient continues to be restless, tachycardic in the 150s range and tachypnic in the 50s--- ERMD made aware
--- NOTE | 2021-07-12 04:30 | NUR ---
patient repositioned lying left side.
--- NOTE | 2021-07-12 05:00 | NUR ---
REPOSITIONED PATIENT TO THE RIGHT SIDE
--- NOTE | 2021-07-12 05:40 | NUR ---
patient tolerating well without restraints. patient is no longer pulling at lines and tubes.
--- NOTE | 2021-07-12 06:03 | NUR ---
patient currently no longer pulling on lines and tubes. tolerating well.
[2021-07-12] MEDS ORDERED: DEXAMETHASONE 10 MG/ML VIAL IVP ONE (06:15)
--- NOTE | 2021-07-12 06:21 | NUR ---
Dr. Rubio examining patient.
--- NOTE | 2021-07-12 06:22 | NUR ---
INITIATED CODE BRAIN PER DR. NELSON. RADIOLOGY STAFF AWARE
--- NOTE | 2021-07-12 06:27 | NUR ---
RADIOLOGY AT BEDSIDE
[2021-07-12 06:30] VITALS: BP 101/57
--- NOTE | 2021-07-12 06:33 | NUR ---
PT TAKEN TO CT
--- NOTE | 2021-07-12 06:43 | NUR ---
PT RETURN FROM CT
--- NOTE | 2021-07-12 06:43 | NUR ---
patient back from CT via gurney, attached patient back on the monitors. Safety measures are in place, will continue to monitor patient.
--- NOTE | 2021-07-12 06:45 | NUR ---
Dr. Rubio requesting to intubate patient. RSI kit removed from omnicell and taken to bedside. RT called to bedside.
[2021-07-12] MEDS ORDERED: INTUBATION KIT MC ONE (06:50)
--- NOTE | 2021-07-12 06:52 | NUR ---
RT AT BEDSIDE
--- NOTE | 2021-07-12 06:55 | NUR ---
RESPIRATORY FAILURE PENDING ENDTOTRACHEAL INTUBATION/CARDIOPULMONARY ARREST Sunday MACDONALD RCP AND Ino PHAM RCP ATTENDING
--- NOTE | 2021-07-12 06:56 | NUR ---
Dr. Rubio examining patient.
[2021-07-12] MEDS ORDERED: PROPOFOL 1000 MG/100 ML PREMIX 100 ML IV ONE (07:01)
--- NOTE | 2021-07-12 07:08 | NUR ---
Pt intubated by Dr. Rubio. Pt noted to become bradycardic with HR 34. Dr. Rubio ordered for Atropine 1mg IVP x1 to be given.
--- NOTE | 2021-07-12 07:09 | NUR ---
Jayna pop in EDM - 07/12/21 at 0715 by MEDJJ PER [place] - SIGNIFICANT MIDLINE SHIFT RIGHT TO LEFT - 11.1MM FROM SEPTUM. LISE MADE AWARE
--- NOTE | 2021-07-12 07:09 | NUR ---
PER [place] - SIGNIFICANT MIDLINE SHIFT RIGHT TO LEFT - 11.1MM FROM SEPTUM. LISE NELSON MADE AWARE
--- NOTE | 2021-07-12 07:10 | NUR ---
No pulses felt. CPR initiated. Code Torsten called and ACLS initiated. See code sheet.
--- NOTE | 2021-07-12 07:12 | NUR ---
USING GLIDESCOPE PATIENT SUCCESSFULLY INTUBATION BY LISE MERCADO WITH AN ENDOTRACHEAL TUBE #7.0 SECURED AT 24cm TEETH/GUM LINE WITH AN ANCHOR FAST COMFIRMATION VIA CO2 DETECTOR; AUCULTATION BILATERAL LUNG MEDINA APEX TO MID; AUSCULTATION TO ABDOMINAL Addendum: 07/12/21 at 0815 by TED CO2 DETECTOR YELLOW
[2021-07-12] MEDS ORDERED: PRIMARY CRASH CART TRAY MC ONE (07:14)
[2021-07-12] MEDS ORDERED: DOPPLER MC ONE (07:15)
--- NOTE | 2021-07-12 07:24 | NUR ---
Pt pronouced by Dr. Rubio.
--- NOTE | 2021-07-12 07:51 | NUR ---
Called metal mold dresser-- spoke to nikko el reports will call back for further information
--- NOTE | 2021-07-12 07:56 | NUR ---
Called [facility] spoke with Leon Soriano-- #[phone]
--- NOTE | 2021-07-12 08:30 | NUR ---
Dr. Rubio on phone to notify family.
--- NOTE | 2021-07-12 08:49 | NUR ---
Mandolin Repairer called back, spoke with Jet Browning about patient. report #[id number]
--- NOTE | 2021-07-12 09:03 | NUR ---
Body is released according to le Whitman
[2021-07-12] MEDS ORDERED: ROCURONIUM 50 MG/5 ML VIAL IV ONE (09:10)
[2021-07-12] MEDS ORDERED: ETOMIDATE 20 MG/10 ML VIAL IVP ONE (09:10)
[2021-07-12] MEDS ORDERED: VECURONIUM 10 MG VIAL IVP ONE (09:10)
[2021-07-12] MEDS ORDERED: ATROPINE 1 MG/10 ML SYR IVP ONE (09:10)
--- NOTE | 2021-07-12 09:51 | NUR ---
Spoke with Leon Soriano - provided [facility] report #
--- NOTE | 2021-07-12 09:58 | NUR ---
Spoke with Ladarius COYLE about patient expiring. ERMD aware of status
--- NOTE | 2021-07-12 10:00 | NUR ---
Pt report given to Jassi JOHNSON. Transfer of care at this time.
--- NOTE | 2021-07-12 10:00 | NUR ---
Report and care received from ALEX Wood.
--- NOTE | 2021-07-12 10:48 | NUR ---
PT MOVED TO BED 130 FOR FAMILY TO VISIT.
== END 2021-07-12 07:23 ==
LOC: MED 20:41
DX: C79.31 Secondary malignant neoplasm of brain (principal); Z20.822 Contact with and (suspected) exposure to COVID-19; Z88.0 Allergy status to penicillin; Z79.899 Other long term (current) drug therapy; Z86.73 Personal history of transient ischemic attack (TIA), and cerebral infarction without residual deficits; Z85.47 Personal history of malignant neoplasm of testis
CPT/HCPCS: 36415; 70450; 71045; 80053; 81001; 83605; 85025; 87040; 87426; 92950; 93005; 96365; 96366; 96367; 96375; 96376; 99291; J0696; J0780; J1100; J1200; J1630; J1885; J1953; J2060; J2150; J2270; J2405; J2704; J3490